=== PATIENT | female | born 1995 ===

== ENCOUNTER → 2021-12-21 | Outpatient (CLI) | payer OTHER | END | disposition home or self-care (01) | LOC: LAB SHORT 10:25 → LAB 10:25 | DX: L08.9 Local infection of the skin and subcutaneous tissue, unspecified (principal) | CPT/HCPCS: 87070; 87205 ==

== ENCOUNTER 2022-04-26 08:04 | Day surgery (SDC) | payer OTHER ==
[~2022-04-26] VITALS: Ht 162.6 cm; Wt 105.6 kg
[2022-04-26] MEDS ORDERED: [UNRECOGNIZED DRUG - OTHER] PO (08:48)
--- NOTE | 2022-04-26 09:14 | NUR ---
History, Chart, Medications and Allergies reviewed before start of procedure. Patient confirms NPO status and agrees with scheduled surgery. Patient States Post-Procedure ride home has been arranged WITH CORY HALE.
--- NOTE | 2022-04-26 15:32 | NUR ---
LATE ENTRY FOR 1430. 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 PT REPORTS NO PAIN OR NAUSEA. REQUESTING SODA AND PUDDING. FAMILY AT BEDSIDE. VSS. WILL CONTINUE TO MONITOR.
--- NOTE | 2022-04-26 15:35 | NUR ---
PT REPORTED NO PAIN OR NAUSEA. SEE EMAR. PT REQUESTING TO GO HOME. Ambulatory in Day Surgery. Dressing to procedure site clean, dry, intact with no visible drainage, swelling, erythema or bruising noted. Discharged via wheelchair to private car for ride home.
== END 2022-04-26 15:15 | disposition home or self-care (01) ==
LOC: ORSCMMR 08:04 → ORD 09:30 → ORSCMMR 15:15
PROVIDERS: Surgery
PROC: 0DBQ0ZZ Excision of Anus, Open Approach (ICD-10-PCS; principal; 2022-04-26 11:30)
DX: K60.3 Anal fistula (principal); E66.01 Morbid (severe) obesity due to excess calories; Z68.41 Body mass index [BMI] 40.0-44.9, adult
CPT/HCPCS: A9270; J0694; J1100; J1885; J2250; J2370; J2405; J2704; J2795; J3010; J7120